=== PATIENT | female | born 1945 | race Caucasian/White ===

== ENCOUNTER 2016-12-12 10:01 | Day surgery (SDC) | payer OTHER ==
[2016-12-09 14:45] VITALS: BMI 25.4
[2016-12-12 11:51] VITALS: TEMP 97.7
[2016-12-12 12:54] VITALS: BP 124/65; PULSE 72
--- NOTE | 2016-12-14 11:25 | PATH ---
Surgical Pathology Report Patient Name: MARK CHEN [facility]. Rec. #: [id number] /Age/Gender: 1945 (Age: 71) / F Account: [id number] Location: [facility]-ENDOSCOPY Taken: 12/12/2016 Received: 12/12/2016 Reported: 12/14/2016 Physicians: Inderjit Delgado M.D. Specimen(s) Received A: BX RECTAL POLYP B: BX DESCENDING COLON POLYP C: BX CECAL POLYP D: BX PROXIMAL TRANSVERSE COLON POLYP Clinical History Polyp surveillance Family history of duodenal cancer Colon polyps Final Diagnosis A. RECTUM, POLYP, BIOPSY: FRAGMENTS OF HYPERPLASTIC POLYP. B. COLON, DESCENDING, POLYP, BIOPSY: FRAGMENTS OF HYPERPLASTIC POLYP. C. COLON, CECUM, POLYP, BIOPSY: TUBULAR ADENOMA. D. COLON, PROXIMAL TRANSVERSE, POLYP, BIOPSY: TUBULAR ADENOMA. SEPARATE FRAGMENT OF FATTY TISSUE WITH MESOTHELIAL LINING PRESENT (SEE COMMENT). Comment: The case was discussed with Dr. Delgado 12/14/16. Electronically Signed Ej Sargent M.D. Gross Description A. Received in formalin, labeled "biopsy rectal polyp" are 3 beach, irregular portions of soft tissue averaging 0.2 cm in greatest dimension. The specimens are submitted in toto in one cassette. B. Received in formalin, labeled "biopsy descending colon polyp" are 3 beach, irregular portions of soft tissue ranging from 0.1-0.3 cm in greatest dimension. The specimens are submitted in toto in one cassette. C. Received in formalin, labeled "biopsy cecal polyp" are 2 beach, irregular portions of soft tissue measuring 0.1 and 0.2 cm in greatest dimension. The specimens are submitted in toto in one cassette. D. Received in formalin, labeled "biopsy proximal transverse colon polyp" are 2 beach, irregular portions of soft tissue averaging 0.3 cm in greatest dimension. The specimens are submitted in toto in one cassette. 12/12/201612/12/2016
== END 2016-12-12 12:56 | disposition home or self-care (01) ==
LOC: JASU-ENDO 10:01
PROVIDERS: ATTEND Internal Medicine Gastroenterology
PROC: 0DBL8ZX Excision of Transverse Colon, Via Natural or Artificial Opening Endoscopic, Diagnostic (ICD-10-PCS; 2016-12-12)
PROC: 0DBH8ZX Excision of Cecum, Via Natural or Artificial Opening Endoscopic, Diagnostic (ICD-10-PCS; 2016-12-12)
PROC: 0DBM8ZX Excision of Descending Colon, Via Natural or Artificial Opening Endoscopic, Diagnostic (ICD-10-PCS; 2016-12-12)
PROC: 0DBP8ZX Excision of Rectum, Via Natural or Artificial Opening Endoscopic, Diagnostic (ICD-10-PCS; principal; 2016-12-12 11:00)
DX: Z86.010 Personal history of colon polyps (principal); K62.1 Rectal polyp; D12.0 Benign neoplasm of cecum; D12.4 Benign neoplasm of descending colon; D12.3 Benign neoplasm of transverse colon; K64.8 Other hemorrhoids; K57.30 Diverticulosis of large intestine without perforation or abscess without bleeding
CPT/HCPCS: 88305-TC

== ENCOUNTER 2017-01-11 07:02 | Day surgery (SDC) | payer OTHER ==
[2017-01-10 10:22] VITALS: BMI 29.2
[2017-01-11] MEDS ORDERED: PROPOFOL 20 ML ONE ×2 (08:33)
[2017-01-11] MEDS ORDERED: LIDOCAINE HCL/PF 2% SDV 5ML VIAL ONE (08:34)
[2017-01-11 09:32] VITALS: TEMP 97.6
[2017-01-11 10:06] VITALS: PULSE 61
[2017-01-11 10:59] VITALS: BP 140/68
--- NOTE | 2017-01-12 15:01 | PATH ---
Surgical Pathology Report Patient Name: MARK CHEN [facility]. Rec. #: [id number] /Age/Gender: 1945 (Age: 71) / F Account: [id number] Location: [facility]-ENDOS[facility] Taken: 01/11/2017 Received: 01/11/2017 Reported: 01/12/2017 Physicians: Inderjit Delgado M.D. Specimen(s) Received A: BX 2ND PORTION DUODENUM B: DUODENAL POLYP, SECOND PORTION C: BX ANTRUM Clinical History GERD, dyspepsia, family history of duodenal cancer Large duodenal polyp, hiatal hernia Final Diagnosis A. DUODENUM, SECOND PORTION, BIOPSY: DUODENAL MUCOSA WITH MILD CHRONIC INFLAMMATION. NO HISTOLOGIC EVIDENCE OF GLUTEN SENSITIV ENTEROPATHY (CELIAC DISEASE). B. DUDENUM, SECOND PORTION, LARGE POLYP, BIOPSY: FRAGMENTS OF DUODENAL TUBULOVILLOUS ADENOMA. NO HIGH GRADE DYSPLASIA OR CARCINOMA IDENTIFIED IN THE EXAMINED MATERIAL. C. STOMACH, ANTRUM, BIOPSY: GASTRIC OXYNTIC TYPE MUCOSA WITH MID CHRONIC GASTRITIS. IMMUNOSTAIN FOR H. PYLORI IS NEGATIVE FOR ORGANISMS. Electronically Signed Ej Sargent M.D. Gross Description A. Received in formalin, labeled "second portion of duodenum" are 3 beach, irregular portions of soft tissue averaging 0.3 cm in greatest dimension. The specimens are submitted in toto in one cassette. B. Received in formalin, labeled "large duodenal polyp" are 5 beach, irregular portions of soft tissue ranging from 0.1-0.4 cm in greatest dimension. The specimens are submitted in toto in one cassette. C. Received in formalin, labeled "antrum" is a beach, irregular portion of soft tissue measuring 0.4 cm in greatest dimension. The specimen is submitted in toto in one cassette. 01/11/2017 saudi01/11/2017
== END 2017-01-11 10:58 | disposition home or self-care (01) ==
LOC: JASU-ENDO 07:02
PROVIDERS: ATTEND Internal Medicine Gastroenterology
PROC: 0DB98ZX Excision of Duodenum, Via Natural or Artificial Opening Endoscopic, Diagnostic (ICD-10-PCS; 2017-01-11)
PROC: 3E0G8GC Introduction of Other Therapeutic Substance into Upper GI, Via Natural or Artificial Opening Endoscopic (ICD-10-PCS; 2017-01-11)
PROC: 0DB68ZX Excision of Stomach, Via Natural or Artificial Opening Endoscopic, Diagnostic (ICD-10-PCS; principal; 2017-01-11 08:30)
DX: K29.80 Duodenitis without bleeding (principal); K31.7 Polyp of stomach and duodenum; K29.50 Unspecified chronic gastritis without bleeding; K44.9 Diaphragmatic hernia without obstruction or gangrene
CPT/HCPCS: 88305-TC; 88342-TC